=== PATIENT | female | born 1985 | race Caucasian/White ===

== ENCOUNTER 2023-12-30 12:55 | Outpatient (CLI) | payer OTHER | END 2023-12-30 12:57 | disposition home or self-care (01) | LOC: SONOGRAMA 12:55 | PROVIDERS: ATTEND Pathology Anatomic Pathology | DX: D34 Benign neoplasm of thyroid gland (principal); E07.89 Other specified disorders of thyroid; C73 Malignant neoplasm of thyroid gland ==

== ENCOUNTER 2024-07-24 07:53 | Outpatient (CLI) | payer OTHER | END 2024-07-24 07:54 | disposition home or self-care (01) | LOC: SONOGRAMA 07:53 | PROVIDERS: ATTEND Pathology Anatomic Pathology & Clinical Pathology | DX: D34 Benign neoplasm of thyroid gland (principal); E04.2 Nontoxic multinodular goiter ==